=== PATIENT | male | born 2000 | race Caucasian/White ===

== ENCOUNTER 2018-12-05 12:03 | Emergency (ER) | payer OTHER ==
[2018-12-06 04:17] LABS: Amphetamine Screen,Urine Not Detected (NotDetected); Barbiturate Screen,Urine Not Detected (NotDetected); Benzodiazepines Screen,Urine Not Detected (NotDetected); Cocaine Screen,Urine Not Detected (NotDetected); Methadone Screen, Urine Not Detected (NotDetected); Opiate Screen,Urine Not Detected (NotDetected); Oxycodone Screen, Urine Not Detected (NotDetected); Phencyclidine Screen,Urine Not Detected (NotDetected); Tricyclic Antidepressant,Urine Not Detected (NotDetected); Urn Cannabinoid Scrn Not Detected (NotDetected)
== END 2018-12-05 16:24 | disposition home or self-care (01) ==
LOC: EC 12:03
DX: R46.89 Other symptoms and signs involving appearance and behavior (principal); Z86.59 Personal history of other mental and behavioral disorders; Z88.1 Allergy status to other antibiotic agents
CPT/HCPCS: 80306; 82075; 99285